=== PATIENT | male | born 1985 | race Caucasian/White ===

== ENCOUNTER 2021-03-24 20:53 | Emergency (ER) | payer SELFPAY ==
[~2021-03-24] VITALS: Ht 167.6 cm; Wt 68.0 kg
[2021-03-24] MEDS ORDERED: LORAZEPAM 0.5MG TABLET PO ONE (22:30)
[2021-03-25 00:11] LABS: BASOPHILS % 0.7 % (0.0-2.0); EOSINOPHILS % 2.3 % (0.0-5.0); HEMOGLOBIN. 14.7 g/dL (14.0-18.0); LYMPHOCYTES % 40.5 % (20.0-50.0); MEAN CORPUSCULAR HEMOGLOBIN 30.9 pg (28.0-32.0); MEAN CORPUSCULAR VOLUME 90.5 fL (80.0-94.0); MEAN PLATELET VOLUME 8.6 fl (7.4-10.4); MONOCYTES % 5.8 % (2.0-8.0); NEUTROPHILS % 50.7 % (40.0-76.0); PLATELET 183 x1000/uL (130-400); RED BLOOD CELL COUNT 4.76 mill/uL (4.7-6.1); RED CELL DISTRIBUTION WIDTH 16.1 % (11.6-14.6)
[2021-03-25 00:18] LABS: CHLORIDE 109 mEq/L (98-107)
[2021-03-25 00:23] LABS: ETHANOL BLOOD 187 mg/dL
[2021-03-25 05:37] VITALS: BP 128/68
== END 2021-03-25 05:39 | disposition home or self-care (01) ==
LOC: ER 20:53
DX: F10.129 Alcohol abuse with intoxication, unspecified (principal); Y90.6 Blood alcohol level of 120-199 mg/100 ml; Z91.013 Allergy to seafood
CPT/HCPCS: 36415; 80053; 80307; 80320; 80329; 85025; 99285; G0480